=== PATIENT | female | born 1945 | race Caucasian/White ===

== ENCOUNTER 2019-08-26 08:28 | Outpatient (CLI) | payer MEDICARE, BC ==
[~2019-08-26 08:28] MED LIST: ASPI-1009 PO; ESTR0.3T10 PO; FLAX100015 PO; LACT1CAP65 PO; MAGN400C PO; POTA20TA19 PO; VALS1TAB40 PO
== END 2019-08-26 23:59 | disposition home or self-care (01) ==
LOC: CARD DIAG 08:28
PROVIDERS: ATTEND Internal Medicine
DX: I05.8 Other rheumatic mitral valve diseases (principal); I27.20 Pulmonary hypertension, unspecified
CPT/HCPCS: 93306

== ENCOUNTER 2019-09-29 06:45 | Outpatient (CLI) | payer MEDICARE, BC | END 2019-09-29 23:59 | disposition home or self-care (01) | LOC: RT 06:45 | PROVIDERS: ATTEND Internal Medicine | DX: J84.9 Interstitial pulmonary disease, unspecified (principal); J43.8 Other emphysema | CPT/HCPCS: 94618 ==